=== PATIENT | female | born 1940 | race Caucasian/White ===

== ENCOUNTER 2021-03-19 12:29 | Outpatient (CLI) | payer MEDICARE, SELFPAY ==
--- NOTE | ~2021-03-19 | US_ITS ---
EXAMINATION: US arterial ankle brachial ind DATE: 03/19/2021 14:31 INDICATION: Skin discoloration in the lower limbs. TECHNIQUE: Segmental pressures and plethysmographic and Doppler waveforms of the brachial and lower e xtremity arteries were obtained. COMPARISON: None. FINDINGS: Right and left brachial artery pressures of 196 mm Hg and 158 mm Hg, respectively, are discordant (no rmal difference <= 30 mmHg). The right ankle-brachial index (MONALISA) is 0.54 (normal >= 0.9-1.0). The right great toe-brachial index (TBI) is 0.28 (normal >= 0.65). Arterial Doppler waveforms are biphasic with brisk systolic upstrokes at both the right posterior tibial and dorsalis pedis arteries. The left MONALISA is 0.78. The left TBI is 0.22. Arterial Doppler waveforms are biphasic with brisk systol ic upstrokes at both the left posterior tibial and dorsalis pedis arteries. IMPRESSION: 1. Arterial occlusive disease to the bilateral lower limbs with moderately decreased right MONALISA and TB I and mild to moderately decreased left MONALISA and severely decreased left TBI. 2. Discordant bilateral brachial pressures with significantly decreased left brachial pressure relati ve to the right. This could be due to hemodynamically significant stenosis more proximally on the lef t or potentially artifactually elevated right brachial artery pressure such as in the setting of vess el wall calcification. If the latter this would result in artifactually decreased ABIs and TBIs and o verestimation of the degree of arterial occlusive disease to the lower limbs. Would consider carotid CT angiogram assessing the great vessels arising from the aortic arch. Reviewed, dictated and finalized at location A. IMPRESSION: 1. Arterial occlusive disease to the bilateral lower limbs with moderately decr eased right MONALISA and TBI and mild to moderately decreased left MONALISA and severely decreased left TBI. 2. Discordant bilateral brachial pressures with significantly decreased left br achial pressure relative to the right. This could be due to hemodynamically sig nificant stenosis more proximally on the left or potentially artifactually elev ated right brachial artery pressure such as in the setting of vessel wall calci fication. If the latter this would result in artifactually decreased ABIs and T BIs and overestimation of the degree of arterial occlusive disease to the lower limbs. Would consider carotid CT angiogram assessing the great vessels arising from the aortic arch.
--- NOTE | ~2021-03-19 | CT_ITS ---
EXAMINATION: CT lung screening DATE: 03/19/2021 13:12 INDICATION: Personal history of tobacco dependence, prior smoker with 110 year pack history TECHNIQUE: Computed tomography (CT) of the chest was performed without intravenous contrast. The dose -length product (DLP) was 241.23 mGy-cm. Automated exposure control and iterative reconstruction tech [employer] were employed. COMPARISON: None FINDINGS: There is mild emphysema. There is a 4 mm nodule of the right upper lobe on image 30. There is a 4 mm nodule of the left upper lobe on image 40. Additional smaller 2 to 3 mm nodules are seen th roughout the lungs. The lungs are free of acute opacities. There is no pleural effusion or pneumothor ax. Calcified pulmonary nodules and calcified left hilar lymph nodes are consistent with old granulom atous disease. There is calcified atherosclerosis. Changes of prior median sternotomy are noted. IMPRESSION: 1. Lung-RADS category 2: Benign appearance or behavior. Reviewed, dictated and finalized at location A.
--- NOTE | ~2021-03-19 | US_ITS ---
EXAMINATION: US venous doppler [facility] DATE: 03/19/2021 14:31 INDICATION: Discoloration of the skin of the bilateral lower legs TECHNIQUE: Hines scale images without and with compression and Doppler images of the bilateral lower e xtremity veins were obtained. COMPARISON: None FINDINGS: The right common femoral vein, profunda femoral vein, femoral vein, popliteal vein, peroneal trunk, p osterior tibial veins, and greater saphenous vein are patent. The left common femoral vein, profunda femoral vein, femoral vein, popliteal vein, peroneal trunk, po sterior tibial veins, and greater saphenous vein are patent. IMPRESSION: 1. Patent bilateral lower extremity veins. No evidence of deep venous thrombosis. Reviewed, dictated and finalized at location A. IMPRESSION: 1. Patent bilateral lower extremity veins. No evidence of deep venous thrombosi s.
== END 2021-03-19 12:30 | disposition home or self-care (01) ==
PROVIDERS: PCP Family Medicine; Visit Provider Nurse Practitioner Family
DX: Z12.2 Encounter for screening for malignant neoplasm of respiratory organs (principal); R23.8 Other skin changes; Z87.891 Personal history of nicotine dependence; I70.203 Unspecified atherosclerosis of native arteries of extremities, bilateral legs; R60.0 Localized edema; M79.89 Other specified soft tissue disorders
CPT/HCPCS: 71271; 93922; 93970

== ENCOUNTER 2025-09-03 18:49 | Observation (INO) | payer MEDICARE, SELFPAY ==
[2025-09-03] VITALS (8 sets, daily range): BP systolic 103–149; BP diastolic 51–93; PULSE 75–83; RESP 15–20; TEMP 36.6–36.9; O2SAT 78–100
--- NOTE | ~2025-09-03 | XR_ITS ---
EXAMINATION: XR chest 1V portable DATE: 09/03/2025 21:09 INDICATION: Weakness. TECHNIQUE: A single frontal view of the chest was obtained. COMPARISON: CT chest 03/19/2021 FINDINGS: Significant cardiomegaly with postoperative changes. Significant atherosclerotic aorta. No acute pulmonary findings. Prominent central pulmonary arteries suggest pulmonary arterial hypertension. IMPRESSION: 1. No acute findings. 2. Cardiomegaly, atherosclerotic aorta and postoperative of the heart. Reviewed, dictated and finalized at location T. CTOR GLOBAL
--- NOTE | ~2025-09-03 | XR_ITS ---
EXAMINATION: XR hip BI 2V w AP pelvis DATE: 09/03/2025 19:44 INDICATION: Trauma TECHNIQUE: AP pelvis and 2 views of both hips were obtained. COMPARISON: None. FINDINGS: Overall visualization is less than optimal due to body habitus. Postoperative changes of total hip arthroplasty of right hip. No acute findings on either side. Arthritis of the SI joints. IMPRESSION: 1. No acute bony lesions. 2. Postoperative changes of right hip. Arthritis of left hip and SI joints. Atherosclerotic changes of arteries. 3. If symptoms are localized and persistent further imaging with MRI is suggested. Reviewed, dictated and finalized at location T. H UP EDGER IMPRESSION: 1. No acute bony lesions. 2. Postoperative changes of right hip. Arthritis of left hip and SI joints. Ath erosclerotic changes of arteries. 3. If symptoms are localized and persistent further imaging with MRI is suggest ed.
--- NOTE | ~2025-09-03 | CT_ITS ---
EXAM/PROCEDURE: CT knee RT wo con HISTORY: trauma COMPARISON: None available. TECHNIQUE: Right knee CT FINDINGS: No fracture lucency or dislocation. Severe osteoarthritic tricompartmental degenerative changes present with small joint effusion. There is also infiltrative changes in the subcutaneous soft tissues in the visualized upper calf region. Extensive vascular calcifications also noted. IMPRESSION: No fracture lucency. Edematous appearing changes in the posterior calf region noted. Other findings as above. NOTE: Preliminary radiology report provided by [facility] radiologist physician. Reviewed, dictated and finalized at location A. GRATED LOGISTICS PROGRAMS DIRECTOR IMPRESSION: No fracture lucency. Edematous appearing changes in the posterior calf region n oted. Other findings as above. NOTE: Preliminary radiology report provided by [facility] radiologist physician.
--- NOTE | ~2025-09-03 | CT_ITS ---
EXAM/PROCEDURE: CT pelvis wo con HISTORY: pelvic pain COMPARISON: None available. TECHNIQUE: CT pelvis FINDINGS: Patient status post right total hip arthroplasty. Bones and hardware appear intact. No gross loosening failure fracture. Advanced osteoarthritic degenerative changes in the left hip, and advanced degenerative changes in the visualized lumbar spine. No fracture lucency subluxation or dislocation seen. Moderate to large amount of stool incidentally noted. Diverticular disease with no gross diverticulitis in the field of view. IMPRESSION: No fracture lucency. Probable constipation incidentally noted. Other findings as above. NOTE: Preliminary radiology report provided by [facility] radiologist physician. Reviewed, dictated and finalized at location A. E HEATER IMPRESSION: No fracture lucency. Probable constipation incidentally noted. Other findings a s above. NOTE: Preliminary radiology report provided by [facility] radiologist physician.
--- NOTE | ~2025-09-03 | XR_ITS ---
EXAMINATION: XR knee RT 3V DATE: 09/03/2025 19:44 INDICATION: Trauma. TECHNIQUE: 3 views of right knee were obtained. COMPARISON: None. FINDINGS: No acute fracture. Advanced grade 4 degenerative changes of medial compartment. Moderate changes of lateral compartment and patellofemoral joint. Calcific changes of femoral popliteal arteries. IMPRESSION: 1. No acute bony lesions. 2. Advanced degenerative arthritis of medial compartment. Small effusion in the knee joint. 3. Calcific changes of femoral, popliteal arteries. Reviewed, dictated and finalized at location T. IAL EDUCATION CASE MANAGER
--- NOTE | 2025-09-03 19:18 | ED_ITS ---
HPI - General Adult General Chief complaint: Fall Stated complaint: fall Time Seen by Provider: 09/03/25 19:01 History of Present Illness HPI narrative: 89-year-old female present to the emergency department for evaluation after having a ground level fall. Patient reports that she was attempting to open a bag of cereal in the bag wrapped and she bent down to pick the serial often up falling landing on her knees elbows. Patient does complain of right knee pain. Patient starts she was unable to ambulate after the accident. Patient denies striking her head denies loss of consciousness. Patient states he lives at home on her own but daughter does help take care of her. Patient lives in her own apartment. Patient states she is not it but able to ambulate after the ground level fall. Patient's primary complaint is right knee pain. Patient does have ecchymosis and tenderness to the right knee. Patient also does complain of some hip pain to palpation. Related Data Allergies Allergy/AdvReac Type Severity Reaction Status Date / Time No Known Allergies Allergy Verified 09/04/25 02:00 Review of Systems 2 Review of Systems: All systems reviewed & are unremarkable except as noted in HPI and below PMFSH Social History Social History Smoking packs per day: 1.5 Smoking cigarettes per day: 30.0 Years smoked: 20 Smoking pack-years: 30.00 Smoking status: Former smoker Tobacco type: cigarettes Second hand tobacco smoke exposure: No Alcohol intake: never Substance use: never Lack of Transportation: No Lack of Food: Never True Current Housing: I Have Housing Concerned About Future Housing: No Difficulty Paying Gas/Electric Bills: No Difficulty Paying for Meds: No Currently Unemployed: No Education: High School Diploma/GED Difficulty w/ Childcare or Family Care: No Spiritual care concerns: No Exam 2 Narrative: APPEARANCE: Well appearing, no pain, no distress, well-nourished. HEAD: normocephalic, atraumatic. EYES: PERRLA/EOMI, conjunctivae clear. NOSE: Normal no drainage EARS:TMS clear with good light reflex. THROAT: Pharynx clear, no exudate. NECK: Supple. No adenopathy, no masses. RESPIRATORY: Airway patent, respirations nonlabored. Clear to auscultation bilaterally, no rales, rhonchi, wheezing. CARDIOVASCULAR: Regular rate and rhythm without murmurs rubs or gallops. ABDOMINAL: Soft, nontender, nondistended, normal bowel sounds MUSCULOSKELETAL: Right knee tenderness to palpation NEURO: Alert. Cranial nerves II through XII intact. Good gait. Good coordination SKIN: Warm, dry. Normal Color Course Vital Signs Vital signs: Vital Signs Temperature 97.8 F 09/03/25 19:04 Pulse Rate 78 09/03/25 19:04 Respiratory Rate 17 09/03/25 19:04 Blood Pressure 137/74 09/03/25 19:04 Pulse Oximetry 96 09/03/25 19:04 Temperature 98.4 F 09/04/25 01:01 Pulse Rate 73 09/04/25 01:01 Respiratory Rate 15 09/04/25 01:01 Blood Pressure 128/59 L 09/04/25 01:01 Pulse Oximetry 96 09/04/25 01:01 Oxygen Delivery Room Air 09/04/25 01:42 [facility] Narrative Medical decision making narrative: [age] old female presents emergency department for evaluation for right knee pain after having a ground level fall. Patient states that this is mechanical fall that happened this morning. Patient is currently afebrile but does have a leukocytosis of 16.0. Patient has a normal hemoglobin. Patient denies any recent illnesses coughs colds fevers or rashes. Patient does feel increased generalized weakness since having the fall though. Patient has no significant acute abnormalities on her CMP. Patient does have mild elevation and T bili AST and ALT, UA was negative for infection. Patient was negative for influenza RSV and for COVID. Chest x-ray shows no acute cardiopulmonary abnormality. Hip and pelvis x-ray showed no acute fracture dislocation and knee x-ray shows no acute fracture dislocation. Patient was unable to ambulate and patient does live at home on her own is unable take care of herself. I did discuss potential rehab placement if patient is unable to ambulate patient was not initially opposed to this. CT of knee and pelvis were ordered and were negative. Case will be discussed with the hospitalist. Patient was accepted to med surg. Patient was updated results of the workup and plan for admission. All questions concerns were addressed Differential Diagnosis Differential Diagnosis: Knee fracture, knee contusion, pelvic fracture, pneumonia, COVID, RSV, influenza, UTI, failure to thrive Lab Data [facility] Lab Attestation statement: I personally reviewed the patient's lab results. 09/03/25 20:38 09/03/25 20:38 Labs: Lab Results 09/03/25 09/03/25 09/03/25 Range/Units 20:38 21:09 21:29 WBC 16.0 H (4.5-10.0) K/mm3 RBC 4.45 (4.2-5.4) M/mm3 Hgb 14.3 (12.0-15.0) g/dL Hct 42.7 (37.0-47.0) % MCV 96.0 (80-100) fl MCH 32.1 (26-34) pg MCHC 33.5 (32-36) g/dl RDW 14.3 (11.5-14.5) % Plt Count 230 (150-375) k/mm3 MPV 9.9 (7.4-10.4) fl Immature Gran % (Auto) 0.4 (0-0.5) % Neut % (Auto) 83.0 H (45.5-73.1) % Lymph % (Auto) 8.8 L (18.3-44.2) % Caldwell % (Auto) 7.3 (2.6-8.5) % Eos % (Auto) 0.1 (0-4.4) % Baso % (Auto) 0.4 (0.2-1.2) % Lymph # (Auto) 1.41 (0.9-3.2) K/mm3 Caldwell # (Auto) 1.2 H (0.1-0.6) K/mm3 Eos # (Auto) 0.0 (0-0.3) K/mm3 Baso # (Auto) 0.1 (0.0-0.1) K/mm3 Abs Immat Gran (auto) 0.06 H (0.00-0.031) K/mm3 Absolute Neuts (auto) 13.2 H (1.3-6.7) K/mm3 Absolute Nucleated RBC 0.000 (0.0-0.012) K/mm3 Nucleated RBC % 0.0 (0.0-0.2) % PT 17.5 H (11.1-14.7) Seconds INR 1.5 APTT 25.0 (22.3-36.8) Seconds Sodium 137 (137-145) mmol/L Potassium 3.8 (3.4-5.0) mmol/L Chloride 106 (98-107) mmol/L Carbon Dioxide 26 (22-30) mmol/L Anion Gap 5 (4-12) mmol/L BUN 32 H (7-17) mg/dL Creatinine 0.71 (0.7-1.0) mg/dL Estim Creat Clear Calc 61 ml/min Estimated GFR > 60 (59 - ) Glucose 108 (65-110) mg/dL Calcium 10.5 H (8.4-10.2) mg/dL Total Bilirubin 1.6 H (0.2-1.3) mg/dL AST 78 H (14-36) U/L ALT 47 H (6-35) U/L Alkaline Phosphatase 105 (38-126) U/L Total Creatine Kinase 1233 H (30-135) U/L Total Protein 7.4 (6.3-8.2) g/dL Albumin 4.2 (3.5-5.1) g/dL Urine Color Dark yellow (Yellow) Urine Appearance Cloudy H (Clear) Urine pH 5.0 (5.0-9.0) Ur Specific Christine 1.029 (1.001-1.035) Urine Protein 1+ H (Negative) mg/dL Urine Glucose (UA) Negative (Negative) mg/dL Urine Ketones Trace H (Negative) mg/dL Ur Blood (Man) 1+ H (Negative) Urine Nitrate Negative (Negative) Urine Bilirubin Negative (Negative) Urine Urobilinogen 1.0 (<2.0) mg/dL Add Ur Microanalysis Reviewed Leukocyte Esterase Rfl Negative (Negative) ZEENAT/UL Urine RBC 11-20 H (0-2) /hpf Urine WBC 0-5 (0-3) /hpf Ur Squamous Epith Cells None seen (Few) /hpf Calcium Oxalate Crystal Present (None) /hpf Urine Bacteria None seen /hpf Urine Casts 3-5 Urine Mucus Present /lpf Influenza A (RT-PCR) Negative (Negative) Influenza B (RT-PCR) Negative (Negative) RSV (RT-PCR) Negative (Negative) SARS-CoV-2 RNA (RT-PCR) Negative (Negative) Imaging Data Attestation: I personally reviewed and interpreted this imaging study as follows: My impression: Knee x-ray: No acute fracture dislocation Chest x-ray: No acute cardiopulmonary abnormality Radiologist's impression: ITS Impressions Knee X-Ray 09/03/25 19:47 IMPRESSION: 1. No acute bony lesions. 2. Advanced degenerative arthritis of medial compartment. Small effusion in the knee joint. 3. Calcific changes of femoral, popliteal arteries. Hip/Pelvis X-Ray 09/03/25 19:48 IMPRESSION: 1. No acute bony lesions. 2. Postoperative changes of right hip. Arthritis of left hip and SI joints. Atherosclerotic changes of arteries. 3. If symptoms are localized and persistent further imaging with MRI is suggested. Chest X-Ray 09/03/25 21:10 IMPRESSION: 1. No acute findings. 2. Cardiomegaly, atherosclerotic aorta and postoperative of the heart. Overnight read CT knee impression: No evidence of acute fracture dislocation. Severe tricompartmental osteoarthritis. Posterior calf subcutaneous edema CT pelvis impression no evidence of acute fracture dislocation. Right total hip arthroplasty. Fecal impaction. Diverticulosis Discharge Plan Discharge Clinical Impression: Generalized weakness, Acute pain of right hip, Acute pain of right knee, Adult failure to thrive Patient Disposition: Still a Patient Condition: Serious
--- NOTE | 2025-09-03 19:56 | PC.NURSE ---
Pt given ice chips, tolerated well.
[2025-09-03 20:44] LABS: Hematocrit 42.7 % (37.0-47.0); Hemoglobin 14.3 g/dL (12.0-15.0); Immature Granulocyte Percent A 0.4 % (0-0.5); Lymphocytes Absolute Auto 1.41 K/mm3 (0.9-3.2); Mean Corpuscular HGB Conc 33.5 g/dl (32-36); Mean Corpuscular Hemoglobin 32.1 pg (26-34); Mean Corpuscular Volume 96.0 fl (80-100); Nucleated Red Blood Cells Absolute Auto 0.000 K/mm3 (0.0-0.012); Nucleated Red Blood Cells Perc 0.0 % (0.0-0.2); Platelet Count Result 230 k/mm3 (150-375); Red Blood Count 4.45 M/mm3 (4.2-5.4); White Blood Count 16.0 K/mm3 (4.5-10.0)
[2025-09-03 20:56] LABS: Alanine Aminotransferase 47 U/L (6-35); Albumin Level 4.2 g/dL (3.5-5.1); Alkaline Phosphatase 105 U/L (38-126); Anion Gap 5 mmol/L (4-12); Aspartate Amino Transferase 78 U/L (14-36); Bilirubin,Total 1.6 mg/dL (0.2-1.3); Blood Urea Nitrogen 32 mg/dL (7-17); Calcium 10.5 mg/dL (8.4-10.2); Carbon Dioxide 26 mmol/L (22-30); Chloride 106 mmol/L (98-107); Estimated CRCL calculation 61 ml/min; Estimated Glomerular Filt Rate > 60; Glucose 108 mg/dL (65-110); Potassium 3.8 mmol/L (3.4-5.0); Sodium 137 mmol/L (137-145); Total Protein 7.4 g/dL (6.3-8.2)
[2025-09-03 20:59] LABS: INR 1.5; Partial Thromboplastin Time 25.0 Seconds (22.3-36.8); Prothrombin Time 17.5 Seconds (11.1-14.7)
[2025-09-03 21:47] LABS: Add Urine Microscopic? YES; Appearance Urine Cloudy (Clear); Glucose Urine UA Negative (Negative); Leukocyte Esterase Ur Negative LEU/UL (Negative); Need Manual Microscopic Reviewed; Nitrate Urine Negative (Negative); Specific Grav Ur 1.029 (1.001-1.035)
[2025-09-03 21:50] LABS: Influenza A QL RT-PCR Negative (Negative); Influenza B QL RT-PCR Negative (Negative); RSV RNA, RT-PCR Negative (Negative); SARS-CoV-2 RNA PCR Negative (Negative)
[2025-09-04] VITALS (7 sets, daily range): BP systolic 109–146; BP diastolic 52–84; PULSE 73–83; RESP 15–18; TEMP 36.1–36.9; O2SAT 94–98; BMI 40.3
[2025-09-04 00:03] LABS: Creatine Kinase 1233 U/L (30-135)
[2025-09-04] MEDS: LACTATED RINGERS 1,000 ML 125 ML IV CONT (00:51)
--- NOTE | 2025-09-04 01:18 | WPCEDHO ---
ED Hand Off Checklist All vitals saved:Y IV Site documented:Y All med administrations documented:Y Triage Note Triage Note Pt to ED via EMS from home c/o 09/03/25 18:48 BLE pain after a fall this AM. Ems reports she slid and fell down. Pt states she was pouring cereal when it spilled and she slid and fell to ground, hitting knees. Pt reports was unable to get herself up off floor. Denies hitting head, -LOC. Ems reports pt has been on ground since 0700. Pt incontinent upon arrival to ED. Pt is on blood thinners for Afib. PMH also includes COPD, CHF . Pt a&ox4. Allergies No Known Allergies Allergy (Verified 09/03/25 19:04) Active Medications including assessments/comments Lactated Ringer's (Lr - Lactated Ringers Iv) 1,000 mls @ 125 mls/hr IV CONT .Q8H STA Stop: 09/04/25 08:04 Last Admin: 09/04/25 00:51 Dose: 125 mls/hr Documented By: YAS Infusion/Titration Document 09/04/25 00:51 [facility] (Rec: 09/04/25 00:52 [facility] [id number]) Intake IV Site Peripheral Access Left Lateral Wrist Container Volume 1,000 Waste Amount 0 Dosing Infusion Rate 125 Cumulative Dose Not Applicable Increase/Decrease Started Elapsed Time Elapsed Time ( 0m minutes) Notes 09/03/25 19:56 Nurse Note by Jeanna Sears Pt given ice chips, tolerated well. Initialized on 09/03/25 19:56 - END OF NOTE Interventions/Assessments IV Line Assessment Start: 09/03/25 18:38 Freq: Status: Active Protocol: Document 09/03/25 23:15 YAS (Rec: 09/03/25 23:15 [facility] [id number]) IV Assessment Peripheral Access Left Lateral Wrist IV Catheter Access Initiated IV Insertion Date 09/03/25 IV Insertion Time 23:15 Catheter Gauge 22 IV Insertion 1 Attempts Ultrasound Used for No Placement IV Site Assessment WNL IV Care and WNL Maintenance Last Vital Signs Temperature 98.4 F 09/04/25 01:01 Pulse Rate 73 09/04/25 01:01 Respiratory Rate 15 09/04/25 01:01 Pulse Oximetry 96 09/04/25 01:01 Blood Pressure 128/59 L 09/04/25 01:01 Blood Pressure Mean 80 09/04/25 01:01 Weight 108.3 kg 09/03/25 18:48 Last Result - Abnormals Only WBC 16.0 K/mm3 (4.5-10.0) H 09/03/25 20:38 Neut % (Auto) 83.0 % (45.5-73.1) H 09/03/25 20:38 Lymph % (Auto) 8.8 % (18.3-44.2) L 09/03/25 20:38 Branch # (Auto) 1.2 K/mm3 (0.1-0.6) H 09/03/25 20:38 Abs Immat Gran (auto) 0.06 K/mm3 (0.00-0.031) H 09/03/25 20:38 Absolute Neuts (auto) 13.2 K/mm3 (1.3-6.7) H 09/03/25 20:38 PT 17.5 Seconds (11.1-14.7) H 09/03/25 20:38 BUN 32 mg/dL (7-17) H 09/03/25 20:38 Calcium 10.5 mg/dL (8.4-10.2) H 09/03/25 20:38 Total Bilirubin 1.6 mg/dL (0.2-1.3) H 09/03/25 20:38 AST 78 U/L (14-36) H 09/03/25 20:38 ALT 47 U/L (6-35) H 09/03/25 20:38 Total Creatine Kinase 1233 U/L (30-135) H 09/03/25 20:38 Urine Appearance Cloudy (Clear) H 09/03/25 21:29 Urine Protein 1+ mg/dL (Negative) H 09/03/25 21:29 Urine Ketones Trace mg/dL (Negative) H 09/03/25 21:29 Ur Blood (Man) 1+ (Negative) H 09/03/25 21:29 Urine RBC 11-20 /hpf (0-2) H 09/03/25 21:29 Most Recent Suicide Severity Rating Suicide Severity Rating NO RISK INDICATED 09/03/25 18:48
--- NOTE | 2025-09-04 01:43 | ADMGEN ---
This patient, Diandra Armendariz, was admitted to [facility] Surg Room 316-01. Patient/family oriented to hospital policies and general routines including ID bracelet, bed and alarms, visiting hours, pain management, procedures, bathroom and other care routines, personal items, smoking policy, room service/diet, and visiting hours. Information on how to activate the Rapid Response Team has been discussed. Patient/Family are encouraged to report perceived risks to care and to ask questions if they do not understand what they are told or what they should do.
--- NOTE | 2025-09-04 08:20 | PM.IMHP2 ---
H&P: HPI History of Present Illness Date/Time: 09/04/25 08:20 Chief Complaint: fall Narrative: 89-year-old female with PMH/of valce replacement- on coumadin,, hTN, HLD, back pain/arthritis present to the emergency department for evaluation after having a ground level fall. She lost balance and fell. Prior to the fall, she had no problems. She landed on her knees and elbows. Patient does complain of right knee pain. Patient starts she was unable to ambulate after the accident. Patient denies striking her head denies loss of consciousness. Patient states he lives at home on her own but daughter does help take care of her. Patient does have ecchymosis and tenderness to the right knee. Patient also does complain of some hip pain to palpation. she has chronic pain and takes baclofen and tramadol for pain at home. She is a former smoker. In ED: she was afebrile, WBC 16.0. Patient has a normal hemoglobin, mild elevation and T bili AST and ALT, UA was unremarkable but pt c/o symptoms. Patient was negative for influenza RSV and for COVID. Chest x-ray shows no acute cardiopulmonary abnormality. Hip and pelvis x-ray showed no acute fracture dislocation and knee x-ray shows no acute fracture dislocation. CT of knee and pelvis were ordered and were negative. Review of Systems Review of Systems: All systems reviewed & are unremarkable except as noted in HPI and below PMFSH Social History Social History Smoking packs per day: 1.5 Smoking cigarettes per day: 30.0 Years smoked: 20 Smoking pack-years: 30.00 Smoking status: Former smoker Tobacco type: cigarettes Second hand tobacco smoke exposure: No Alcohol intake: never Substance use: never Lack of Transportation: No Lack of Food: Never True Current Housing: I Have Housing Concerned About Future Housing: No Difficulty Paying Gas/Electric Bills: No Difficulty Paying for Meds: No Currently Unemployed: No Education: High School Diploma/GED Difficulty w/ Childcare or Family Care: No Spiritual care concerns: No Meds Home Medications and Allergies Home Medications ?Medication ?Instructions ?Recorded ?Confirmed ?Type aspirin 81 mg tablet,delayed 81 mg PO DAILY 09/04/25 09/04/25 History release (Adult Low Dose Aspirin) atorvastatin 40 mg tablet 40 mg PO QPM 09/04/25 09/04/25 History baclofen 10 mg tablet 10 mg PO TID 09/04/25 09/04/25 History benazepril 40 mg tablet 40 mg PO DAILY 09/04/25 09/04/25 History cetirizine 10 mg tablet 10 mg PO HS 09/04/25 09/04/25 History furosemide 40 mg tablet 40 mg PO EVERY OTHER DAY 09/04/25 09/04/25 History isosorbide mononitrate 30 mg 30 mg PO DAILY 09/04/25 09/04/25 History tablet,extended release 24 hr multivitamin (Daily Multi-Vitamin 1 tablet PO DAILY 09/04/25 09/04/25 History tablet) potassium chloride 10 mEq 10 meq PO DAILY 09/04/25 09/04/25 History tablet,extended release tramadol 50 mg tablet 50 mg PO BID PRN pain 09/04/25 09/04/25 History trazodone 50 mg tablet 50 mg PO HS 09/04/25 09/04/25 History vitamin D 3 09/04/25 History warfarin 2.5 mg tablet 2.5 mg PO .COMPLEX 09/04/25 09/04/25 History warfarin 5 mg tablet 5 mg PO .COMPLEX 09/04/25 09/04/25 History Allergies Allergy/AdvReac Type Severity Reaction Status Date / Time No Known Allergies Allergy Verified 09/04/25 10:38 Vital Signs Vital Signs - 24 hr 09/03/25 19:04 09/03/25 20:45 09/03/25 21:02 Temperature 97.8 F 98.5 F 98.5 F Pulse Rate 78 81 78 Respiratory Rate 17 15 16 Blood Pressure 137/74 116/93 H 103/51 L Pulse Oximetry 96 95 100 Oxygen Delivery 09/03/25 21:32 09/03/25 22:04 09/03/25 22:32 Temperature 98.4 F Pulse Rate 78 83 81 Respiratory Rate 18 19 17 Blood Pressure 125/61 131/56 L 149/87 H Pulse Oximetry 78 L Oxygen Delivery 09/03/25 23:07 09/03/25 23:45 09/04/25 00:00 Temperature 98.4 F Pulse Rate 79 75 83 Respiratory Rate 20 18 18 Blood Pressure 136/59 L Pulse Oximetry 99 98 96 Oxygen Delivery 09/04/25 00:15 09/04/25 00:30 09/04/25 01:01 Temperature 98.4 F Pulse Rate 77 74 73 Respiratory Rate 16 16 15 Blood Pressure 140/84 128/59 L Pulse Oximetry 97 98 96 Oxygen Delivery 09/04/25 01:42 09/04/25 06:00 Temperature 97 F L Pulse Rate 78 Respiratory Rate 16 Blood Pressure 146/54 H Pulse Oximetry 95 Oxygen Delivery Room Air Exam Const: General: comfortable Resp: Effort & Inspection: normal respiratory effort Auscultation: clear to auscultation bilaterally Cardio: Rate: regular rate Rhythm: regular rhythm GI: GI Palp: Yes Soft to palpation Auscultation: normal bowel sounds Neuro: Speech: normal speech Motor exam (neuro): 5/5 motor strength present throughout Extrem: Other: tenderness to palpation to magdalena knees, hips Results Labs Labs: Short CBC 09/03/25 Range/Units 20:38 WBC 16.0 H (4.5-10.0) K/mm3 Hgb 14.3 (12.0-15.0) g/dL Hct 42.7 (37.0-47.0) % Plt Count 230 (150-375) k/mm3 BMP 09/03/25 20:38 Sodium 137 Potassium 3.8 Chloride 106 Carbon Dioxide 26 BUN 32 H Creatinine 0.71 Glucose 108 Calcium 10.5 H Cardiac Enzymes 09/03/25 Range/Units 20:38 Total Creatine Kinase 1233 H (30-135) U/L Liver Function 09/03/25 Range/Units 20:38 Total Bilirubin 1.6 H (0.2-1.3) mg/dL AST 78 H (14-36) U/L ALT 47 H (6-35) U/L Alkaline Phosphatase 105 (38-126) U/L Albumin 4.2 (3.5-5.1) g/dL Urine 09/03/25 Range/Units 21:29 Urine Color Dark yellow (Yellow) Urine Appearance Cloudy H (Clear) Urine pH 5.0 (5.0-9.0) Ur Specific [place] 1.029 (1.001-1.035) Urine Protein 1+ H (Negative) mg/dL Urine Glucose (UA) Negative (Negative) mg/dL Quality VTE Prophylaxis VTE prophylaxis: pharmacologic ordered Assessment and Plan Assessment and plan (1) Acute pain of right hip: Code(s): M25.551 - Pain in right hip Status: Acute (2) Acute pain of right knee: Code(s): M25.561 - Pain in right knee Status: Acute (3) Valvular heart disease: Code(s): I38 - Endocarditis, valve unspecified Status: Acute (4) Anticoagulated on Coumadin: Code(s): Z79.01 - [facility] (current) use of anticoagulants Status: Acute (5) HTN (hypertension): Code(s): I10 - Essential (primary) hypertension Status: Acute (6) Arthritis: Code(s): M19.90 - Unspecified osteoarthritis, unspecified site Status: Acute (7) HLD (hyperlipidemia): Code(s): E78.5 - Hyperlipidemia, unspecified Status: Acute Plan 89-year-old female with PMH/of valce replacement- on coumadin,, hTN, HLD, back pain/arthritis present to the emergency department for evaluation after having a ground level fall. She lost balance and fell. Prior to the fall, she had no problems. She landed on her knees and elbows. Patient does complain of right knee pain. Patient starts she was unable to ambulate after the accident. Patient denies striking her head denies loss of consciousness. Patient states he lives at home on her own but daughter does help take care of her. Patient does have ecchymosis and tenderness to the right knee. Patient also does complain of some hip pain to palpation. she has chronic pain and takes baclofen and tramadol for pain at home. She is a former smoker. In ED: she was afebrile, WBC 16.0. Patient has a normal hemoglobin, mild elevation and T bili AST and ALT, UA was unremarkable but pt c/o symptoms. Patient was negative for influenza RSV and for COVID. Chest x-ray shows no acute cardiopulmonary abnormality. Hip and pelvis x-ray showed no acute fracture dislocation and knee x-ray shows no acute fracture dislocation. CT of knee and pelvis were ordered and were negative. 1. pt was started on rocephin will continue it for now as pt c/o urinary symptoms 2. Will restart home coumadin and monitor pt/INR. pt had valve replaced but not sure when and unable to give any more details. Her pcp is managing labs/coumadin tx. Daughter is to get records. Pt never been here, so no records are available for review and pt is poor historian. 3. will order pt/ot for eval for possible placement. 4. initiate fall and bleeding precautions Pt is dnr. Prior Studies I have reviewed the following patient records and this information was taken into consideration when formulating the assessment and plan.: previous labs, previous ER visits, previous hospitalizations and previous clinic visits Time Spent with Patient Time with patient: 45 - 74 minutes Hospitalist MIPS Advance Care Plan I have confirmed that the patient's Advanced Care Plan is present, code status is documented, or surrogate decision maker is listed in patient medical record.: Yes Medication Reconciliation I have utilized all available resources to obtain, update and review the patients current medications (includes all prescriptions, OTC, herbals, cannabis, and nutritional supplements).: Yes
[2025-09-04] MEDS: cefTRIAXone 1 GM in SODIUM CHLORIDE 0.9% IV 50 ML 100 ML IVPB (15:47)
[2025-09-04] MEDS: ASPIRIN 81 MG ENTERIC TABLET PO (15:50)
[2025-09-04] MEDS: MULTIVITAMINS THERAPEUTIC TAB (*BKC) 1 TABLET PO (15:50)
[2025-09-04] MEDS: ISOSORBIDE MONONITRATE 30 MG TAB.ER.24H PO (15:51)
[2025-09-04] MEDS: BACLOFEN 10 MG TABLET PO ×2 (15:51→17:30)
[2025-09-04] MEDS: ATORVASTATIN 40 MG TABLET PO (17:30)
[2025-09-04] MEDS: WARFARIN (*PBKC) 2.5 MG TABLET PO (17:35)
[2025-09-04] MEDS: LORATADINE 10 MG TABLET PO (21:20)
[2025-09-05 06:00] VITALS: BP 152/68; PULSE 68; RESP 18; TEMP 36.4; O2SAT 93
[2025-09-05 07:43] LABS: Hematocrit 35.9 % (37.0-47.0); Hemoglobin 11.8 g/dL (12.0-15.0); Mean Corpuscular HGB Conc 32.9 g/dl (32-36); Mean Corpuscular Hemoglobin 32.2 pg (26-34); Mean Corpuscular Volume 97.8 fl (80-100); Platelet Count Result 209 k/mm3 (150-375); Red Blood Count 3.67 M/mm3 (4.2-5.4); White Blood Count 11.4 K/mm3 (4.5-10.0)
[2025-09-05 07:53] LABS: INR 1.3; Prothrombin Time 15.8 Seconds (11.1-14.7)
[2025-09-05 08:09] LABS: Anion Gap 0 mmol/L (4-12); Blood Urea Nitrogen 27 mg/dL (7-17); Calcium 9.8 mg/dL (8.4-10.2); Carbon Dioxide 27 mmol/L (22-30); Chloride 105 mmol/L (98-107); Estimated CRCL calculation 58 ml/min; Estimated Glomerular Filt Rate > 60; Glucose 97 mg/dL (65-110); Potassium 3.8 mmol/L (3.4-5.0); Sodium 132 mmol/L (137-145)
[2025-09-05] MEDS: ISOSORBIDE MONONITRATE 30 MG TAB.ER.24H PO (09:08)
[2025-09-05] MEDS: MULTIVITAMINS THERAPEUTIC TAB (*BKC) 1 TABLET PO (09:08)
[2025-09-05] MEDS: ASPIRIN 81 MG ENTERIC TABLET PO (09:09)
[2025-09-05] MEDS: BACLOFEN 10 MG TABLET PO ×3 (09:09→17:47)
[2025-09-05] MEDS: cefTRIAXone 1 GM in SODIUM CHLORIDE 0.9% IV 50 ML 100 ML IVPB (09:09)
--- NOTE | 2025-09-05 09:19 | PM.IMPN2 ---
Assessment and Plan Assessment and Plan (1) Fall: Code(s): W19.XXXA - Unspecified fall, initial encounter Status: Acute Assessment and Plan: She lost balance and fell. Prior to the fall, she had no problems. She landed on her knees and elbows. Patient does complain of right knee pain. Patient starts she was unable to ambulate after the accident. Patient denies striking her head denies loss of consciousness. Patient states he lives at home on her own but daughter does help take care of her. Patient does have ecchymosis and tenderness to the right knee. Patient also does complain of some hip pain to palpation. she has chronic pain and takes baclofen and tramadol for pain at home. -Hip and pelvis x-ray showed no acute fracture dislocation and knee x-ray shows no acute fracture dislocation. CT of knee and pelvis were ordered and were negative. -Will order pt/ot for eval for possible placement - OT recs for SNF, PT recs for HH -Initiate fall and bleeding precautions (2) Valvular heart disease: Code(s): I38 - Endocarditis, valve unspecified Status: Acute Assessment and Plan: Will restart home coumadin and monitor pt/INR. pt had valve replaced but not sure when and unable to give any more details. Her pcp is managing labs/coumadin tx. Daughter is to get records. Pt never been here, so no records are available for review and pt is poor historian. Chest x-ray shows no acute cardiopulmonary abnormality. (3) Anticoagulated on Coumadin: Code(s): Z79.01 - [facility] (current) use of anticoagulants Status: Acute Assessment and Plan: See above. (4) HTN (hypertension): Code(s): I10 - Essential (primary) hypertension Status: Acute Assessment and Plan: Restart home meds -Continue to monitor VS Plan Pt was started on Rocephin will continue it for nowas pt admitted urinary symptoms prior. Denies urinary sx today. Time Spent With Patient Time with patient: 25 - 35 minutes Subjective Date/time seen: 09/05/25 1112 Interval history: Pt sitting up in chair upon my arrival. Pt denies CP/SOB. Pt c/o pain to her BUE and bilateral knees since her fall. Pt continues to work with therapy with probable plans for rehab after discharge. Attempted to contact pt daughterLinnea today to verify code status. Per pt, full code. Review of Systems Review of Systems: All systems reviewed & are unremarkable except as noted in HPI and below Exam Const: General: no acute distress and uncomfortable HENMT: Face/Nose/Sinus: Normal nares present Mouth: Yes moist mucous membranes Eyes: General: appearance normal, both eyes and all related structures Sclera: sclerae normal Neck: Neck: supple Resp: Effort & Inspection: normal respiratory effort Auscultation: clear to auscultation bilaterally Cardio: Rate: regular rate Rhythm: regular rhythm GI: Auscultation: normal bowel sounds Skin: General skin exam: normal color and no rashes or lesions noted Neuro: Speech: normal speech Motor exam (neuro): Normal motor muscle tone present throughout Sensory Exam: normal sensation Extrem: Other: tenderness to palpation to magdalena knees Psych: Mental Status: mental status grossly normal Affect: normal affect Objective Data Vital Signs Vital Signs: Vital Signs - 24 hr 09/04/25 14:00 09/04/25 21:20 09/04/25 22:00 Temperature 98.4 F 98.1 F Pulse Rate 83 76 Respiratory Rate 17 16 Blood Pressure 146/53 H 109/52 L Pulse Oximetry 94 95 Oxygen Delivery Room Air 09/05/25 06:00 Temperature 97.5 F L Pulse Rate 68 Respiratory Rate 18 Blood Pressure 152/68 H Pulse Oximetry 93 Oxygen Delivery Intake/Output Intake/Output: Intake & Output 09/02/25 09/03/25 09/04/25 09/05/25 23:59 23:59 23:59 23:59 Intake Total 1604 100 Balance 1604 100 Meds/Results Medications: Active Medications Generic Name Dose Route Start Last Admin Trade Name Freq PRN Reason Stop Dose Admin Acetaminophen 650 mg 09/03/25 23:36 Acetaminophen 325 Mg Tablet PO Q4H PRN Mild Pain (1-3) or Fever Aspirin 81 mg 09/04/25 14:05 09/05/25 09:09 Aspirin 81 Mg Enteric Tablet PO 81 mg DAILY [facility] Administration Atorvastatin Calcium 40 mg 09/04/25 18:00 09/04/25 17:30 Atorvastatin 40 Mg Tablet PO 40 mg QPM [facility] Administration Baclofen 10 mg 09/04/25 14:05 09/05/25 09:09 Baclofen 10 Mg Tablet PO 10 mg TID [facility] Administration Ceftriaxone Sodium 1 gm/ 50 mls @ 100 mls/hr 09/04/25 14:00 09/05/25 09:09 Sodium Chloride IVPB 100 mls/hr QAM [facility] Administration Isosorbide Mononitrate 30 mg 09/04/25 14:05 09/05/25 09:08 Isosorbide Mononitrate 30 Mg Tab.Er.24h PO 30 mg DAILY [facility] Administration Lisinopril 40 mg 09/04/25 14:05 09/05/25 09:09 Lisinopril 20 Mg Tablet PO 10/05/25 14:04 40 mg DAILY [facility] Administration Loratadine 10 mg 09/04/25 21:00 09/04/25 21:20 Loratadine 10 Mg Tablet PO 10/04/25 20:59 10 mg HS [facility] Administration Multivitamins Therapeutic 1 tablet 09/04/25 14:05 09/05/25 09:08 Multivitamins Therapeutic Tab (*Bkc) PO 1 tablet DAILY [facility] Administration Tramadol HCl 50 mg 09/04/25 13:44 Tramadol Hcl (*Crx) 50 Mg Tablet PO BID PRN PAIN 4-6 Trazodone HCl 50 mg 09/04/25 21:00 09/04/25 21:20 Trazodone Hcl 50 Mg Tablet PO 50 mg HS [facility] Administration Warfarin Sodium 2.5 mg 09/04/25 17:00 09/04/25 17:35 Warfarin (*Pbkc) 2.5 Mg Tablet PO 2.5 mg TuTh@1700 [facility] Administration Warfarin Sodium 5 mg 09/05/25 17:00 Warfarin (*Pbkc) 5 Mg Tablet PO SuMoWeFrSa@1700 [facility] Radiology Results: ITS Impressions Knee X-Ray 09/03/25 19:47 IMPRESSION: 1. No acute bony lesions. 2. Advanced degenerative arthritis of medial compartment. Small effusion in the knee joint. 3. Calcific changes of femoral, popliteal arteries. Hip/Pelvis X-Ray 09/03/25 19:48 IMPRESSION: 1. No acute bony lesions. 2. Postoperative changes of right hip. Arthritis of left hip and SI joints. Atherosclerotic changes of arteries. 3. If symptoms are localized and persistent further imaging with MRI is suggested. Chest X-Ray 09/03/25 21:10 IMPRESSION: 1. No acute findings. 2. Cardiomegaly, atherosclerotic aorta and postoperative of the heart. Knee CT 09/04/25 08:06 IMPRESSION: No fracture lucency. Edematous appearing changes in the posterior calf region noted. Other findings as above. NOTE: Preliminary radiology report provided by [facility] radiologist physician. Pelvis CT 09/04/25 08:08 IMPRESSION: No fracture lucency. Probable constipation incidentally noted. Other findings as above. NOTE: Preliminary radiology report provided by [facility] radiologist physician. Labs Labs: Laboratory Results - last 24 hr 09/04/25 09/05/25 20:58 07:32 WBC 11.4 H RBC 3.67 L Hgb 11.8 L Hct 35.9 L MCV 97.8 MCH 32.2 MCHC 32.9 RDW 14.4 Plt Count 209 MPV 9.7 PT 15.8 H INR 1.3 Sodium 132 L Potassium 3.8 Chloride 105 Carbon Dioxide 27 Anion Gap 0 L BUN 27 H Creatinine 0.75 Estim Creat Clear Calc 58 Estimated GFR > 60 Glucose 97 POC Capillary Glucose 100 Calcium 9.8 Quality VTE Prophylaxis VTE prophylaxis: pharmacologic ordered (home warfarin)
[2025-09-05] MEDS: traMADol HCL (*CRX) 50 MG TABLET PO (13:33)
[2025-09-05 14:00] VITALS: BP 115/50; PULSE 72; RESP 17; TEMP 36.4; O2SAT 95
[2025-09-05] MEDS: WARFARIN (*PBKC) 5 MG TABLET PO (17:47)
[2025-09-05] MEDS: ATORVASTATIN 40 MG TABLET PO (17:47)
[2025-09-05] MEDS: LORATADINE 10 MG TABLET PO (21:41)
[2025-09-05 21:58] VITALS: BP 130/62; PULSE 77; RESP 18; TEMP 36.3; O2SAT 93
[2025-09-06 06:00] VITALS: BP 123/67; PULSE 71; RESP 18; TEMP 36.2; O2SAT 92
[2025-09-06 06:38] LABS: Hematocrit 35.7 % (37.0-47.0); Hemoglobin 11.8 g/dL (12.0-15.0); Mean Corpuscular HGB Conc 33.1 g/dl (32-36); Mean Corpuscular Hemoglobin 32.5 pg (26-34); Mean Corpuscular Volume 98.3 fl (80-100); Platelet Count Result 214 k/mm3 (150-375); Red Blood Count 3.63 M/mm3 (4.2-5.4); White Blood Count 9.5 K/mm3 (4.5-10.0)
[2025-09-06 06:50] LABS: INR 1.2; Prothrombin Time 15.3 Seconds (11.1-14.7)
[2025-09-06 07:05] LABS: Anion Gap 0 mmol/L (4-12); Blood Urea Nitrogen 21 mg/dL (7-17); Calcium 10.0 mg/dL (8.4-10.2); Carbon Dioxide 29 mmol/L (22-30); Chloride 104 mmol/L (98-107); Estimated CRCL calculation 61 ml/min; Estimated Glomerular Filt Rate > 60; Glucose 100 mg/dL (65-110); Potassium 4.1 mmol/L (3.4-5.0); Sodium 133 mmol/L (137-145)
[2025-09-06] MEDS: ISOSORBIDE MONONITRATE 30 MG TAB.ER.24H PO (09:18)
[2025-09-06] MEDS: cefTRIAXone 1 GM in SODIUM CHLORIDE 0.9% IV 50 ML 100 ML IVPB (09:19)
[2025-09-06] MEDS: MULTIVITAMINS THERAPEUTIC TAB (*BKC) 1 TABLET PO (09:19)
[2025-09-06] MEDS: ASPIRIN 81 MG ENTERIC TABLET PO (09:19)
[2025-09-06] MEDS: BACLOFEN 10 MG TABLET PO ×3 (09:19→16:28)
[2025-09-06] MEDS: traMADol HCL (*CRX) 50 MG TABLET PO (09:44)
--- NOTE | 2025-09-06 11:33 | P.PNIM_ITS ---
Assessment and Plan Assessment and Plan (1) Fall: Code(s): W19.XXXA - Unspecified fall, initial encounter Status: Acute Assessment and Plan: She lost balance and fell. Prior to the fall, she had no problems. She landed on her knees and elbows. Patient does complain of right knee pain. Patient starts she was unable to ambulate after the accident. Patient denies striking her head denies loss of consciousness. Patient states he lives at home on her own but daughter does help take care of her. Patient does have ecchymosis and tenderness to the right knee. Patient also does complain of some hip pain to palpation. she has chronic pain and takes baclofen and tramadol for pain at home. -Hip and pelvis x-ray showed no acute fracture dislocation and knee x-ray shows no acute fracture dislocation. CT of knee and pelvis were ordered and were negative. -Will order pt/ot for eval for possible placement - OT recs for SNF, PT recs for HH -->Spoke to CC regarding pt discharging. Original plan was to go home with HH but daughter and pt decided on SNF this AM, I agree with this plan for continued therapy due to pts residual pain. Pending SNF auth. -Initiate fall and bleeding precautions (2) Valvular heart disease: Code(s): I38 - Endocarditis, valve unspecified Status: Acute Assessment and Plan: Will restart home coumadin and monitor pt/INR. pt had valve replaced but not sure when and unable to give any more details. Her pcp is managing la bs/coumadin tx. Daughter is to get records. Pt never been here, so no records are available for review and pt is poor historian. Chest x-ray shows no acute cardiopulmonary abnormality. (3) Anticoagulated on Coumadin: Code(s): Z79.01 - [employer] (current) use of anticoagulants Status: Acute Assessment and Plan: See above. (4) HTN (hypertension): Code(s): I10 - Essential (primary) hypertension Status: Acute Assessment and Plan: Restart home meds -Continue to monitor VS Plan Pt was started on Rocephin inpt but will continue with PO meds starting 09/07 as pt admitted urinary symptoms prior and now better. Denies urinary sx today. Time Spent With Patient Time with patient: 25 - 35 minutes Subjective Date/time seen: 09/06/25 4726 Interval history: Pt sitting up in chair upon my arrival. Pt denies CP/SOB. Pt c/o pain to her BUE and bilateral knees since her fall. Pt continues to work with therapy with probable plans for rehab after discharge. Spoke to CC regarding pt discharging. Original plan was to go home with HH but daughter and pt decided on SNF this AM, I agree with this plan for continued therapy due to pts residual pain. Pending SNF auth. Review of Systems Review of Systems: All systems reviewed & are unremarkable except as noted in HPI and below Exam Const: General: no acute distress and uncomfortable HENMT: Face/Nose/Sinus: Normal nares present Mouth: Yes moist mucous membranes Eyes: General: appearance normal, both eyes and all related structures Sclera: sclerae normal Neck: Neck: supple Resp: Effort & Inspection: normal respiratory effort Auscultation: clear to auscultation bilaterally Cardio: Rate: regular rate Rhythm: regular rhythm GI: Auscultation: normal bowel sounds Skin: General skin exam: normal color and no rashes or lesions noted Neuro: Speech: normal speech Motor exam (neuro): Normal motor muscle tone present throughout Sensory Exam: normal sensation Extrem: Other: tenderness to palpation to magdalena knees Psych: Mental Status: mental status grossly normal Affect: normal affect Objective Data Vital Signs Vital Signs: Vital Signs - 24 hr 09/05/25 14:00 09/05/25 21:40 09/05/25 21:58 Temperature 97.6 F 97.3 F L Pulse Rate 72 77 Respiratory Rate 17 18 Blood Pressure 115/50 L 130/62 Pulse Oximetry 95 93 Oxygen Delivery Room Air 09/06/25 06:00 09/06/25 08:00 Temperature 97.2 F L Pulse Rate 71 Respiratory Rate 18 Blood Pressure 123/67 Pulse Oximetry 92 Oxygen Delivery Room Air Intake/Output Intake/Output: Intake & Output 09/03/25 09/04/25 09/05/25 09/06/25 23:59 23:59 23:59 23:59 Intake Total 1604 914 340 Balance 1604 914 340 Meds/Results Medications: Active Medications Generic Name Dose Route Start Last Admin Trade Name Freq PRN Reason Stop Dose Admin Acetaminophen 650 mg 09/03/25 23:36 Acetaminophen 325 Mg Tablet PO Q4H PRN Mild Pain (1-3) or Fever Aspirin 81 mg 09/04/25 14:05 09/06/25 09:19 Aspirin 81 Mg Enteric Tablet PO 81 mg DAILY [facility] Administration Atorvastatin Calcium 40 mg 09/04/25 18:00 09/05/25 17:47 Atorvastatin 40 Mg Tablet PO 40 mg QPM [facility] Administration Baclofen 10 mg 09/04/25 14:05 09/06/25 09:19 Baclofen 10 Mg Tablet PO 10 mg TID [facility] Administration Ceftriaxone Sodium 1 gm/ 50 mls @ 100 mls/hr 09/04/25 14:00 09/06/25 09:19 Sodium Chloride IVPB 100 mls/hr QAM [facility] Administration Isosorbide Mononitrate 30 mg 09/04/25 14:05 09/06/25 09:18 Isosorbide Mononitrate 30 Mg Tab.Er.24h PO 30 mg DAILY [facility] Administration Lisinopril 40 mg 09/04/25 14:05 09/06/25 09:18 Lisinopril 20 Mg Tablet PO 10/05/25 14:04 40 mg DAILY [facility] Administration Loratadine 10 mg 09/04/25 21:00 09/05/25 21:41 Loratadine 10 Mg Tablet PO 10/04/25 20:59 10 mg HS [facility] Administration Multivitamins Therapeutic 1 tablet 09/04/25 14:05 09/06/25 09:19 Multivitamins Therapeutic Tab (*Bkc) PO 1 tablet DAILY [facility] Administration Tramadol HCl 50 mg 09/04/25 13:44 09/06/25 09:44 Tramadol Hcl (*Crx) 50 Mg Tablet PO 50 mg BID PRN Administration PAIN 4-6 Trazodone HCl 50 mg 09/04/25 21:00 09/05/25 21:40 Trazodone Hcl 50 Mg Tablet PO 50 mg HS [facility] Administration Warfarin Sodium 2.5 mg 09/04/25 17:00 09/04/25 17:35 Warfarin (*Pbkc) 2.5 Mg Tablet PO 2.5 mg TuTh@1700 [facility] Administration Warfarin Sodium 5 mg 09/05/25 17:00 09/05/25 17:47 Warfarin (*Pbkc) 5 Mg Tablet PO 5 mg SuMoWeFrSa@1700 [facility] Administration Radiology Results: ITS Impressions Knee X-Ray 09/03/25 19:47 IMPRESSION: 1. No acute bony lesions. 2. Advanced degenerative arthritis of medial compartment. Small effusion in the knee joint. 3. Calcific changes of femoral, popliteal arteries. Hip/Pelvis X-Ray 09/03/25 19:48 IMPRESSION: 1. No acute bony lesions. 2. Postoperative changes of right hip. Arthritis of left hip and SI joints. Atherosclerotic changes of arteries. 3. If symptoms are localized and persistent further imaging with MRI is emperatriz swan. Chest X-Ray 09/03/25 21:10 IMPRESSION: 1. No acute findings. 2. Cardiomegaly, atherosclerotic aorta and postoperative of the heart. Knee CT 09/04/25 08:06 IMPRESSION: No fracture lucency. Edematous appearing changes in the posterior calf region noted. Other findings as above. NOTE: Preliminary radiology report provided by [facility] radiologist physician. Pelvis CT 09/04/25 08:08 IMPRESSION: No fracture lucency. Probable constipation incidentally noted. Other findings as above. NOTE: Preliminary radiology report provided by [facility] radiologist physician. Labs Labs: Laboratory Results - last 24 hr 09/06/25 06:08 WBC 9.5 RBC 3.63 L Hgb 11.8 L Hct 35.7 L MCV 98.3 MCH 32.5 MCHC 33.1 RDW 14.4 Plt Count 214 MPV 9.9 PT 15.3 H INR 1.2 Sodium 133 L Potassium 4.1 Chloride 104 Carbon Dioxide 29 Anion Gap 0 L BUN 21 H Creatinine 0.71 Estim Creat Clear Calc 61 Estimated GFR > 60 Glucose 100 Calcium 10.0 Quality VTE Prophylaxis VTE prophylaxis: pharmacologic ordered (home warfarin)
[2025-09-06 14:00] VITALS: BP 112/45; PULSE 70; RESP 18; TEMP 35.8; O2SAT 93
[2025-09-06] MEDS: WARFARIN (*PBKC) 2.5 MG TABLET PO (16:32)
[2025-09-06] MEDS: ATORVASTATIN 40 MG TABLET PO (17:31)
[2025-09-06 20:45] VITALS: BP 98/65; PULSE 71; RESP 18; TEMP 36.1; O2SAT 92
[2025-09-06] MEDS: LORATADINE 10 MG TABLET PO (21:43)
[2025-09-07 06:00] VITALS: BP 135/50; PULSE 61; RESP 16; TEMP 36.3; O2SAT 96
[2025-09-07 06:11] LABS: Hematocrit 35.9 % (37.0-47.0); Hemoglobin 11.6 g/dL (12.0-15.0); Mean Corpuscular HGB Conc 32.3 g/dl (32-36); Mean Corpuscular Hemoglobin 31.9 pg (26-34); Mean Corpuscular Volume 98.6 fl (80-100); Platelet Count Result 214 k/mm3 (150-375); Red Blood Count 3.64 M/mm3 (4.2-5.4); White Blood Count 9.6 K/mm3 (4.5-10.0)
[2025-09-07 06:31] LABS: Anion Gap 1 mmol/L (4-12); Blood Urea Nitrogen 20 mg/dL (7-17); Calcium 10.3 mg/dL (8.4-10.2); Carbon Dioxide 29 mmol/L (22-30); Chloride 104 mmol/L (98-107); Estimated CRCL calculation 60 ml/min; Estimated Glomerular Filt Rate > 60; Glucose 110 mg/dL (65-110); INR 1.2; Potassium 3.9 mmol/L (3.4-5.0); Prothrombin Time 15.5 Seconds (11.1-14.7); Sodium 134 mmol/L (137-145)
[2025-09-07] MEDS: ASPIRIN 81 MG ENTERIC TABLET PO (09:55)
[2025-09-07] MEDS: BACLOFEN 10 MG TABLET PO ×2 (09:55→12:53)
[2025-09-07] MEDS: MULTIVITAMINS THERAPEUTIC TAB (*BKC) 1 TABLET PO (09:56)
[2025-09-07] MEDS: CEFPODOXIME PROXETIL 100 MG TABLET PO (09:56)
[2025-09-07] MEDS: ISOSORBIDE MONONITRATE 30 MG TAB.ER.24H PO (09:56)
[2025-09-07] MEDS: traMADol HCL (*CRX) 50 MG TABLET PO (10:15)
--- NOTE | 2025-09-07 10:23 | P.DS_ITS ---
DS: Admitting Diagnosis Discharge Date 09/07/2025 Admitting Diagnosis Fall DS: Discharge Diagnosis Discharge Diagnosis (1) Fall: Code(s): W19.XXXA - Unspecified fall, initial encounter Status: Acute Assessment and Plan: She lost balance and fell. Prior to the fall, she had no problems. She landed on her knees and elbows. Patient does complain of right knee pain. Patient starts she was unable to ambulate after the accident. Patient denies striking her head denies loss of consciousness. Patient states he lives at home on her own but daughter does help take care of her. Patient does have ecchymosis and tenderness to the right knee. Patient also does complain of some hip pain to palpation. she has chronic pain and takes baclofen and tramadol for pain at home. -Hip and pelvis x-ray showed no acute fracture dislocation and knee x-ray shows no acute fracture dislocation. CT of knee and pelvis were ordered and were negative. -Will order pt/ot for eval for possible placement - OT recs for SNF, PT recs for HH -->Spoke to CC regarding pt discharging. Original plan was to go home with HH but daughter and pt decided on SNF 09/07, I agree with this plan for continued therapy due to pts residual pain. Pt to be discharged to [facility] today for continued therapy. -Initiate fall and bleeding precautions (2) Valvular heart disease: Code(s): I38 - Endocarditis, valve unspecified Status: Acute Assessment and Plan: Will restart home coumadin and monitor pt/INR. pt had valve replaced but not sure when and unable to give any more details. Her pcp is managing labs/coumadin tx. Daughter is to get records. Pt never been here, so no records are available for review and pt is poor historian. Chest x-ray shows no acute cardiopulmonary abnormality. (3) Anticoagulated on Coumadin: Code(s): Z79.01 - [employer] (current) use of anticoagulants Status: Acute Assessment and Plan: See above. (4) HTN (hypertension): Code(s): I10 - Essential (primary) hypertension Status: Acute Assessment and Plan: Restart home meds Plan Pt to be discharged to [facility] today for continued therapy. Pt to continue UTI abx therapy at facility. DS: Summary Hospital Course Reason for hospitalization: Fall, UTI Hospital Course: The patient is a 89-year-old female with a history of mechanical aortic valve replacement (on chronic warfarin), hypertension, hyperlipidemia, and chronic pain/arthritis, who was admitted following a ground-level fall at home. She reported losing her balance while attempting to open a bag of cereal, landing on her knees and elbows, and was unable to ambulate afterward due to right knee pain. She denied head trauma or loss of consciousness. On arrival, she was afebrile but noted to have leukocytosis (WBC 16.0) and mild transaminitis. Imaging, including x-rays and CT scans of the right knee, hip, and pelvis, revealed no acute fractures or dislocations but did show advanced degenerative changes and a right total hip arthroplasty. Urinalysis was notable for cloudy appearance, proteinuria, and hematuria, and she reported urinary symptoms; empiric antibiotics (Rocephin, later transitioned to cefpodoxime) were initiated for suspected urinary tract infection. Her home medications, including warfarin, were resumed with close monitoring of INR. She remained hemodynamically stable throughout her stay, with no evidence of acute cardiopulmonary issues on chest x-ray. Physical and occupational therapy were consulted for mobility assessment and discharge planning. Initially, the plan was for home with home health, but after discussion with the patient and her daughter, she was discharged to a [facility] facility for continued therapy due to persistent pain and limited mobility. At discharge, her leukocytosis had resolved, and she was ambulating with assistance. She was in structed to complete her antibiotic course, continue her home medications, and follow up with her primary care provider within 1?2 weeks. Status at Discharge Overall status at discharge: patient is progressing back to baseline Time Spent with Patient Time attestation: Total time spent providing and/or coordinating discharge services: Time spent: Greater than 30 minutes Exam Narrative: Pt ambulated to the restroom with provider today Const: General: comfortable, no acute distress and uncomfortable HENMT: Face/Nose/Sinus: Normal nares present Mouth: Yes moist mucous membranes Eyes: General: appearance normal, both eyes and all related structures Sclera: sclerae normal Neck: Neck: supple Resp: Effort & Inspection: normal respiratory effort Auscultation: clear to auscultation bilaterally Cardio: Rate: regular rate Rhythm: regular rhythm GI: Auscultation: normal bowel sounds Skin: General skin exam: normal color and no rashes or lesions noted Neuro: Speech: normal speech Motor exam (neuro): Normal motor muscle tone present throughout Sensory Exam: normal sensation Extrem: Other: tenderness to palpation to magdalena knees Psych: Mental Status: mental status grossly normal Affect: normal affect DS: Data Data Completed and Pending Completed studies during hospitalization: Labs, urine, imaging Labs on day of discharge: Labs from last 24 hours 09/07/25 05:56 WBC 9.6 RBC 3.64 L Hgb 11.6 L Hct 35.9 L MCV 98.6 MCH 31.9 MCHC 32.3 RDW 14.4 Plt Count 214 MPV 9.7 PT 15.5 H INR 1.2 Sodium 134 L Potassium 3.9 Chloride 104 Carbon Dioxide 29 Anion Gap 1 L BUN 20 H Creatinine 0.72 Estim Creat Clear Calc 60 Estimated GFR > 60 Glucose 110 Calcium 10.3 H Discharge Plan Discharge Attending physician on discharge: Kleber Campbell Consulting providers: Tess Villalobos Discharging Clinician: Tess Villalobos Anticipated Discharge Date/Time: 09/07/25 13:00 Patient Disposition: Inpatient Rehab Facility Activity: as tolerated Diet: heart healthy Discharge Instructions: 1. Continue to take your oral antibiotics (Cefpodoxime) for your suspected urinary tract infection; be sure to take this medication with a meal to avoid na usea. You have x3 more doses of this. 2. Continue to work with therapy to increase your strength so you are able to go back home DESIREE! Continue to check your blood pressure and blood sugar at home if applicable. Keep your scheduled appts with your primary care provider and any specialist that you may see. Return to the emergency department if you develop sudden shortness of breath, chest pain, a fever of greater than 101.5, or nausea, vomiting, abd pain, or diarrhea that does not go away. Follow-up with your primary care provider within 1-2 weeks, they will want to be updated on your inpatient stay in the hospital. Thank you for choosing [facility] for your healthcare needs. Patient Instructions: Warfarin (By mouth), Cefpodoxime Proxetil (By mouth), Fall Prevention for Older Adults (GEN), Urinary Tract Infection in Older Adults (GEN) Patient Language: Tajik Stand Alone Forms: General Discharge Information Follow-up/Referrals: Rebecca Thapa APRN [Primary Care Provider, Family Practice] - 2 Weeks Discharge Medications: New cefpodoxime 100 mg Tablet 100 mg PO Q12HR Qty: 3 0RF Continued atorvastatin 40 mg tablet 40 mg PO QPM baclofen 10 mg tablet 10 mg PO TID benazepril 40 mg tablet 40 mg PO DAILY cetirizine 10 mg tablet 10 mg PO HS furosemide 40 mg tablet 40 mg PO EVERY OTHER DAY isosorbide mononitrate 30 mg tablet extended release 24 hr 30 mg PO DAILY potassium chloride 10 mEq tablet extended release 10 meq PO DAILY tramadol 50 mg tablet 50 mg PO BID PRN (Reason: pain) trazodone 50 mg tablet 50 mg PO HS warfarin 5 mg tablet 5 mg PO .COMPLEX Rx Instructions: 5 mg orally Every day except Wednesday & ; warfarin 2.5 mg tablet 2.5 mg PO .COMPLEX Rx Instructions: 2.5 mg orally Wednesday & ; 2.5 mg Wednesday & aspirin [Adult Low Dose Aspirin] 81 mg tablet,delayed release (DR/EC) 81 mg PO DAILY multivitamin [Daily Multi-Vitamin] Tablet 1 tablet PO DAILY vitamin D 3 40 units Date of admission: 09/03/25 23:36 Primary Care Provider: Rebecca Thapa Admitting Provider: Harper Dotson Attending physician on admission: Harper Dotson Condition: Stable Quality VTE Prophylaxis VTE prophylaxis: pharmacologic ordered (home warfarin) Hospitalist MIPS Heart Failure (Exclusion) Patient has history of Heart Transplant or Left Ventricular Assistive Device?: No IF YES, STOP HERE Heart Failure (Qualifier) Patient has current or prior documentation of LVEF less than or equal to 40%, or mod/servere depressed LVSF?: No IF NO, STOP HERE
== END 2025-09-07 14:15 ==
LOC: ANHED 23:36 → ANH3MEDSUR 09-04 10:53
PROVIDERS: Nurse Practitioner; Admitting Provider Internal Medicine; Emergency Provider Emergency Medicine; PCP Nurse Practitioner Family; Visit Provider Internal Medicine
DX: M25.561 Pain in right knee (principal); M25.551 Pain in right hip; W18.30XA Fall on same level, unspecified, initial encounter; I38 Endocarditis, valve unspecified; I10 Essential (primary) hypertension; E78.5 Hyperlipidemia, unspecified; Z79.01 Long term (current) use of anticoagulants; Z87.891 Personal history of nicotine dependence; Z20.822 Contact with and (suspected) exposure to COVID-19
CPT/HCPCS: 36415; 71045; 72192; 73521; 73562; 73700; 80048; 80053; 81001; 82550; 82948; 85025; 85027; 85610; 85730; 87637; 96365; 96376; 97161; 97166; 97530; 97535; 99285; A9270; G0378; J0696; J7120